=== PATIENT | male | born 1965 | race Caucasian/White ===

== ENCOUNTER 2022-11-17 17:30 | Outpatient (CLI) | payer BC | END 2022-11-17 17:31 | disposition home or self-care (01) | LOC: SLEEPLAB 17:30 | PROVIDERS: ATTEND Family Medicine | DX: R06.83 Snoring (principal); G47.33 Obstructive sleep apnea (adult) (pediatric) | CPT/HCPCS: 95800 ==

== ENCOUNTER 2024-05-15 11:10 | Emergency (ER) | payer BC ==
[2024-05-15] MEDS ORDERED: Ketorolac Tromethamine 30 MG (1 mL) VIAL ONE (11:58)
[2024-05-15 12:03] LABS: Hematocrit 50.7 % (42.0-52.0); Hemoglobin 17.1 g/dL (14.0-18.0); Mean Corpuscular HGB CONC 33.7 g/dL (32.0-36.0); Mean Corpuscular Volume 88.9 fL (78.0-98.0); Mean Platelet Volume 9.1 fL (7.4-10.4); Platelet Count 295 10x3/uL (130-400); RBC Distribution Width 14.6 % (11.5-14.5)
[2024-05-15 12:13] LABS: ALT (SGPT) 30 U/L (8-55); AST (SGOT) 24 U/L (5-34); Albumin 4.3 g/dL (3.4-4.8); Alkaline Phosphatase 64 U/L (40-110); Anion Gap 17 mmol/L (10-20); BUN (Urea Nitrogen) 20 mg/dL (8.4-25.7); Bilirubin, Total 0.6 mg/dL (0.2-1.2); Calc. Creatinine Clearance 0 mL/min (70-130); Calcium 9.9 mg/dL (7.8-10.44); Carbon Dioxide 19 mmol/L (23-31); Chloride 106 mmol/L (98-107); Estimated GFR 99; Globulin 3.6 g/dL (2.4-3.5); Glucose 89 mg/dL (80-115); Protein, Total 7.9 g/dL (5.8-8.1); Sodium 138 mmol/L (136-145)
[2024-05-15 12:18] LABS: Troponin I Less than 0.010 ng/mL (< 0.028)
[2024-05-15] MEDS ORDERED: Iopamidol-370 76% 500 ML MDV (1 ML CHARGE) ONE (12:20)
[2024-05-15 12:23] LABS: Band 2 % (5-11); Eosinophils 2 % (0-10); Lymphocytes 15 % (21-51); Macrocytosis SLIGHT = 6-15 cells HPF (0-5); Metamyelocyte 2 % (0-0); Monocytes 3 % (0-10); Neutrophil 71 % (42-75); Platelet Adequacy Comment Platelets Normal
[2024-05-15] MEDS ORDERED: Dexamethasone 10 MG/ML VIAL ONE (13:06)
== END 2024-05-15 16:15 | disposition home or self-care (01) ==
LOC: ERS 11:10
DX: M79.602 Pain in left arm (principal); D72.829 Elevated white blood cell count, unspecified; D35.00 Benign neoplasm of unspecified adrenal gland; E11.9 Type 2 diabetes mellitus without complications; E78.00 Pure hypercholesterolemia, unspecified; I10 Essential (primary) hypertension; Z79.899 Other long term (current) drug therapy; Z79.84 Long term (current) use of oral hypoglycemic drugs; Z87.891 Personal history of nicotine dependence
CPT/HCPCS: 70450; 71045; 71260; 72125; 80053; 84484; 85025; 93005; 96372; J1100; J1885; Q9967

== ENCOUNTER 2025-06-21 14:09 | Outpatient (CLI) | payer BC | END 2025-06-21 14:10 | disposition home or self-care (01) | LOC: BICRAD 14:09 | PROVIDERS: ATTEND Physician Assistant | DX: M25.522 Pain in left elbow (principal); M25.552 Pain in left hip ==

== ENCOUNTER 2025-07-18 15:06 | Outpatient (CLI) | payer BC | END 2025-07-18 15:07 | disposition home or self-care (01) | LOC: BICRAD 15:06 | PROVIDERS: ATTEND Family Medicine | DX: M79.652 Pain in left thigh (principal) ==

== ENCOUNTER 2025-08-14 10:17 | Outpatient (CLI) | payer BC | END 2025-08-14 10:18 | disposition home or self-care (01) | LOC: EKG 10:17 | PROVIDERS: ATTEND Internal Medicine Hematology & Oncology | DX: C92.10 Chronic myeloid leukemia, BCR/ABL-positive, not having achieved remission (principal) | CPT/HCPCS: 93005; 93010 ==